=== PATIENT | female | born 1955 | race Caucasian/White ===

== ENCOUNTER → 2016-07-23 | Outpatient (CLI) | payer BC ==
--- NOTE | 2016-07-23 13:55 | DI ---
XR SHOULDER MIN 2VW,07/23/2016 11:04 AM: Clinical History: Acute right shoulder pain. Previous Exam: None at this facility. Findings: 4 views of the right shoulder are obtained, and demonstrate diffuse osteopenia. There are degenerative changes involving the right acromioclavicular joint. There is also osteophyte formation involving the right glenohumeral joint. The adjacent right lung and chest wall are unremarkable. The surrounding soft tissues are also unremarkable. Impression: Diffuse osteopenia and degenerative changes of the acromioclavicular joint and right glenohumeral sarah nt without fractures.
== END ==
LOC: ORTHO 12:12
PROVIDERS: ATTEND Orthopaedic Surgery
DX: M25.511 Pain in right shoulder (principal); M19.011 Primary osteoarthritis, right shoulder
CPT/HCPCS: 73030

== ENCOUNTER → 2016-08-29 | Outpatient (CLI) | payer BC ==
--- NOTE | 2016-08-29 21:12 | DI ---
MRI RIGHT SHOULDER SCAN, 08/29/2016 8:49 AM: Clinical History: Rotator cuff tear arthropathy of the right shoulder. Previous Exam: None at this facility. Technique: Axial, coronal, and sagittal fat saturated PD; axial gradient FE; coronal fat saturatedT2 weighted; sagittal T2 weighted. There is no soft tissue edema. There is a large joint effusion with synovitis in the axillary pouch, the rotator interval, and in the subscapularis recess. This distribution in these 3 locations are kurtis quently associated with adhesive capsulitis although the IGHL does not show increased signal intensit y that would indicate high likelihood of adhesive capsulitis. There is severe arthrosis of the AC sarah nt with cancellous edema both in the acromion and the lateral head of the clavicle with bony prolifer ative change in a joint effusion. There is a type I acromion. The humeral head is subluxed superiorly and there are erosive changes of the undersurface of the acromion. There is complete rupture of both the supraspinatus and infraspinatus tendons and the supraspinatus tendon is retracted medially beyon d the glenoid fossa. The infraspinatus tendon is displaced anteriorly and it courses inferior to the supraspinatus tendon and the distal aspect is in proximity to the biceps labral anchor. The teres min or tendon is normal. There is severe thickening with intermediate signal intensity of the subscapular is tendon indicating severe tendinosis. This patient apparently has had tenodesis of the tendon of th e long head of the biceps muscle. No biceps tendon is visible in the rotator interval. There is a foc al tear in the labrum in the anteroinferior quadrant in this technically can be classified as a soft tissue Bankart lesion. There is also a type II SLAP tear with anterior to posterior extension and tog ether with the lesion in the anteroinferior quadrant, this would constitute a type V SLAP tear. Subch ondral cystic changes are present in the humeral head posterior to the greater tuberosity as well as in the bicipital groove. Bony proliferative change has developed along the inferior margin of the hum eral head. The cartilage of the humeral head where it makes contact with the eroded undersurface of t he acromion is completely denuded. The cartilage of the glenoid fossa above the equator also has been completely eroded. There is greater than 50% fatty infiltration of the atrophic supraspinatus and in fraspinatus muscles with less than 50% fatty infiltration of the mildly atrophic subscapularis and te res minor muscles. These would correspond to a Goutallier grade 4 for the supraspinatus and infraspin atus muscles and a Goutallier grade 2 for the teres minor and subscapularis muscles. Readin. There is complete loss of cartilage in the superior and medial portion of the humeral head where it makes contact with the eroded undersurface of the acromion. There is also complete loss of cartila ge in the upper half above the equator of the glenoid fossa. 2. There is complete rupture of the supraspinatus and infraspinatus tendons. The supraspinatus tendo n is retracted medially beyond the glenoid fossa, and the infraspinatus tendon lies inferior to the s upraspinatus tendon and courses anteriorly toward the biceps labral anchor. This patient apparently h as had tenodesis of the tendon of the long head of the biceps muscle. There is marked atrophy of the supraspinatus and infraspinatus tendons with a Goutallier grade 4 for both muscles. There is fatty in filtration of the teres minor and subscapularis muscles with fat comprising less than 50% of the musc le indicating a Goutallier grade 2 condition. 3. There is severe tendinosis of the subscapularis tendon. The patient apparently has had a tenodesi s of the tendon of the long head of the biceps muscle. There is a type V SLAP tear (a type II SLAP te ar with anterior and posterior extension and with what technically represents a soft tissue Bankart l esion). There is severe arthrosis of the AC joint with a type I acromium.
== END ==
LOC: MRI 08:40
PROVIDERS: ATTEND Orthopaedic Surgery
DX: M12.811 Other specific arthropathies, not elsewhere classified, right shoulder (principal); S46.011A Strain of muscle(s) and tendon(s) of the rotator cuff of right shoulder, initial encounter; S43.431A Superior glenoid labrum lesion of right shoulder, initial encounter; M19.011 Primary osteoarthritis, right shoulder
CPT/HCPCS: 73221

== ENCOUNTER → 2016-10-22 | Outpatient (CLI) | payer BC ==
--- NOTE | 2016-10-22 15:21 | DI ---
XR HIP COMPLETE MIN 2VW U/L,10/22/2016 9:52 AM: Clinical History: Right hip pain Previous Exam: None at this facility. Findings: AP and cross table lateral views of the right hip are obtained, and demonstrate anatomic alignment wi thout fractures. The lower lumbar spine is unremarkable. No pathologic calcifications are seen. Impression: Normal right hip.
== END ==
LOC: ORTHO 10:03
PROVIDERS: ATTEND Orthopaedic Surgery
DX: M25.551 Pain in right hip (principal); M16.11 Unilateral primary osteoarthritis, right hip
CPT/HCPCS: 73502